=== PATIENT | male | born 1970 | race Caucasian/White ===

== ENCOUNTER 2020-08-17 15:55 | Inpatient (IN) | payer MEDICAID ==
[~2020-08-17] VITALS: Ht 190.5 cm; Wt 92.9 kg
[2020-08-17 16:51] LABS: BASOPHILS % (AUTO) 1 % (0-1); EOSINOPHILS % (AUTO) 2 % (1-7); LYMPHOCYTES % (AUTO) 16 % (22-44); MEAN CORPUSCULAR HEMOGLOBIN 34.9 pg (27.5-34.5); MEAN CORPUSCULAR HGB CONC 33.8 g/dL (33.2-36.2); MEAN PLATELET VOLUME 8.1 fL (7.4-10.4); MONOCYTES % (AUTO) 10 % (2-9); NEUTROPHILS % (AUTO) 72 % (42-75); PLATELET COUNT 179 x10^3/uL (130-400); RED CELL DISTRIBUTION WIDTH 14.6 % (9.4-14.8)
--- NOTE | 2020-08-17 17:00 | NUR ---
Pt reports renal failure, dialysis T,TH,Sat. Pt is visiting from out of town, therefore missed his dialysis, does not have his regular meds, is a poor historian and cannot report any of them. Pt with peaked T waves on the monitor, NSR. NADN. Pt reports changes in bowel habits x3 days. No complaints of abd pain.
[2020-08-17 17:03] LABS: ALBUMIN 3.4 g/dL (3.4-5.0); ANION GAP 25 mmol/L (5-15); CHLORIDE 103 mmol/L (98-107)
--- NOTE | 2020-08-17 17:09 | NUR ---
Pt to imaging.
[2020-08-17 17:15] LABS: CALCIUM 5.4 mg/dL (8.5-10.1)
[2020-08-17] MEDS ORDERED: CALCIUM GLUCONATE 4.6 MEQ in SODIUM CHLORIDE 0.9% 100 ML IV ONE (18:00)
[2020-08-17] MEDS ORDERED: CALCIUM GLUCONATE 0.46MEQ/1ML IVPush ONE (18:00)
[2020-08-17] MEDS ORDERED: CALCIUM CHLORIDE 10%, 10ML SYR IVPush ONE (18:00)
--- NOTE | 2020-08-17 18:02 | NUR ---
Pt ambulatory to bathroom, steady gait.
--- NOTE | 2020-08-17 18:12 | NUR ---
MD Field back to bedside to update pt on POC.
[2020-08-17] MEDS ORDERED: CALCIUM CHLORIDE 13.6 MEQ in SODIUM CHLORIDE 0.9% 100 ML IV ONE (18:45)
[2020-08-17 19:38] VITALS: BP 165/77
[2020-08-17 19:52] LABS: ANION GAP 26 mmol/L (5-15); CHLORIDE 103 mmol/L (98-107)
[2020-08-17] MEDS: CALCIUM ACETATE 667 MG CAPSULE PO SCH (20:01)
[2020-08-17 20:04] LABS: CALCIUM 5.8 mg/dL (8.5-10.1)
[2020-08-17] MEDS: HEPARIN 5,000 UNITS/ML, 1ML SQ SCH (20:28)
[2020-08-17] MEDS ORDERED: POLYETHYLENE GLYCOL 17 GM PACKET PO PRN (20:30)
[2020-08-17] MEDS ORDERED: LIDODERM 5% PATCH TD PRN (20:30)
[2020-08-17] MEDS ORDERED: MELATONIN 5 MG TABLET PO PRN (20:30)
[2020-08-17] MEDS ORDERED: DOCUSATE 100 MG CAPSULE PO PRN (20:30)
[2020-08-17] MEDS ORDERED: GABAPENTIN 300 MG CAPSULE PO PRN (20:30)
[2020-08-18 02:00] VITALS: BP 113/65
[2020-08-18] MEDS: HEPARIN 5,000 UNITS/ML, 1ML SQ SCH ×2 (04:39→12:49)
[2020-08-18 05:46] LABS: BASOPHILS % (AUTO) 1 % (0-1); EOSINOPHILS % (AUTO) 1 % (1-7); LYMPHOCYTES % (AUTO) 13 % (22-44); MEAN CORPUSCULAR HEMOGLOBIN 34.6 pg (27.5-34.5); MEAN CORPUSCULAR HGB CONC 33.8 g/dL (33.2-36.2); MEAN PLATELET VOLUME 8.6 fL (7.4-10.4); MONOCYTES % (AUTO) 12 % (2-9); NEUTROPHILS % (AUTO) 74 % (42-75); PLATELET COUNT 174 x10^3/uL (130-400); RED BLOOD COUNT 3.88 x10^6/uL (4.38-5.82); RED CELL DISTRIBUTION WIDTH 14.5 % (9.4-14.8)
[2020-08-18 05:48] LABS: ANION GAP 23 mmol/L (5-15); CHLORIDE 101 mmol/L (98-107)
[2020-08-18 06:43] VITALS: BP 158/89
[2020-08-18] MEDS: CALCIUM ACETATE 667 MG CAPSULE PO SCH ×3 (08:04→17:00)
[2020-08-18] MEDS ORDERED: GABAPENTIN 300 MG CAPSULE PO PRN (12:00)
[2020-08-18] MEDS ORDERED: GABA300C PO (16:20)
[2020-08-18] MEDS ORDERED: CALC667C PO (16:20)
[2020-08-18] MEDS ORDERED: ONDANSETRON 2MG/ML, 2ML ONE (17:37)
[2020-08-18] MEDS ORDERED: CALCIUM CARBONATE 500 MG TAB.CHEW ONE (17:47)
[2020-08-18] MEDS ORDERED: ONDANSETRON 2MG/ML, 2ML IVPush ONE (18:00)
[2020-08-18] MEDS ORDERED: CALCIUM CARBONATE 500 MG TAB.CHEW PO PRN (18:00)
== END 2020-08-18 18:26 | disposition home or self-care (01) | DRG 48 ==
LOC: ED 17:30 → EDIP 19:16 → 4WST 19:20
PROVIDERS: ADMIT Internal Medicine; ATTEND Hospitalist
PROC: 5A1D70Z Performance of Urinary Filtration, Intermittent, Less than 6 Hours Per Day (ICD-10-PCS; principal; 2020-08-17)
DX: E11.43 Type 2 diabetes mellitus with diabetic autonomic (poly)neuropathy (principal); E11.22 Type 2 diabetes mellitus with diabetic chronic kidney disease; E87.2 Acidosis; I12.0 Hypertensive chronic kidney disease with stage 5 chronic kidney disease or end stage renal disease; N18.6 End stage renal disease; Z91.15 Patient's noncompliance with renal dialysis; D63.1 Anemia in chronic kidney disease; E83.51 Hypocalcemia; F17.200 Nicotine dependence, unspecified, uncomplicated; K59.00 Constipation, unspecified; N20.0 Calculus of kidney; Z88.8 Allergy status to other drugs, medicaments and biological substances; Z99.2 Dependence on renal dialysis; Z79.899 Other long term (current) drug therapy
CPT/HCPCS: 36415; 74021; 80048; 82040; 82306; 82310; 82962; 83970; 84100; 85025; 86705; 86706; 87340; 90935; 93005; G0378; J0610; J1644